=== PATIENT | female | born 1955 | race Hispanic/Latino ===

== ENCOUNTER → 2017-10-05 | Outpatient (CLI) | payer MEDICARE ==
[~2017-10-05] MED LIST: ACET-66 PO; ATOR40TA71 PO; CINA30 PO; EMLA30C TP; FOLI1TAB61 PO; METO-391 PO; NITR0.4T SL; OMEP40CA37 PO; ONDA4TAB4 PO; SEVE800T7 PO
== END | disposition home or self-care (01) ==
LOC: RAH 14:31
PROVIDERS: ATTEND Family Medicine
DX: Z12.31 Encounter for screening mammogram for malignant neoplasm of breast (principal)
CPT/HCPCS: 77067

== ENCOUNTER 2019-02-15 00:24 | Emergency (ER) | payer MEDICARE ==
[~2019-02-15 00:24] MED LIST changes: +OMEP40CA13 PO; -OMEP40CA37 PO
[2019-02-15] MEDS ORDERED: HYDRALAZINE HCL 20 MG/ML VIAL ONE (00:47)
[2019-02-15 00:53] LABS: BASOPHILS % (AUTO) 1.4 % (0.0-5.0); HEMATOCRIT 30.5 % (36-48); LYMPHOCYTES % (AUTO) 31.3 % (21.0-51.0); MEAN CORPUSCULAR HEMOGLOBIN 31.5 pg (27.0-33.0); MEAN CORPUSCULAR HGB CONC 34.4 g/dL (32.0-36.0); MEAN CORPUSCULAR VOLUME 91.5 fL (79-99); MONOCYTES % (AUTO) 9.5 % (3.0-13.0); NEUTROPHILS % (AUTO) 55.8 % (40.0-77.0); PLATELET COUNT (AUTO) 156 K/uL (130-400); RED BLOOD CELL COUNT(AUTO) 3.34 MIL/uL (4.00-5.50); RED CELL DISTRIBUTION WIDTH 16.1 % (11.0-15.5); WHITE BLOOD COUNT (AUTO) 5.3 K/uL (4.8-10.8)
[2019-02-15 01:02] LABS: CREATININE 4.9 mg/dL (0.5-1.5); POTASSIUM 3.7 mmol/L (3.5-5.1)
== END 2019-02-15 02:11 | disposition home or self-care (01) ==
LOC: EDH 00:24
DX: F41.8 Other specified anxiety disorders (principal); R00.2 Palpitations; I12.0 Hypertensive chronic kidney disease with stage 5 chronic kidney disease or end stage renal disease; N18.6 End stage renal disease; E78.5 Hyperlipidemia, unspecified
CPT/HCPCS: 36415; 80048; 84484; 85025; 93005; 96374; 99285; J0360

== ENCOUNTER 2019-10-25 05:31 | Day surgery (SDC) | payer MEDICARE ==
[2019-10-23 10:51] VITALS: BP 163/78
[2019-10-23 11:00] LABS: BASOPHILS % (AUTO) 0.9 % (0.0-5.0); EOSINOPHILS % (AUTO) 1.7 % (0.0-8.0); HEMATOCRIT 38.3 % (36-48); LYMPHOCYTES % (AUTO) 35.7 % (21.0-51.0); MEAN CORPUSCULAR HEMOGLOBIN 29.7 pg (27.0-33.0); MEAN CORPUSCULAR HGB CONC 31.6 g/dL (32.0-36.0); MEAN CORPUSCULAR VOLUME 93.9 fL (79-99); MONOCYTES % (AUTO) 8.3 % (3.0-13.0); NEUTROPHILS % (AUTO) 53.2 % (40.0-77.0); PLATELET COUNT (AUTO) 212 K/uL (130-400); RED BLOOD CELL COUNT(AUTO) 4.08 MIL/uL (4.00-5.50); RED CELL DISTRIBUTION WIDTH 15.9 % (11.0-15.5); WHITE BLOOD COUNT (AUTO) 5.4 K/uL (4.8-10.8)
[2019-10-23 11:17] LABS: POTASSIUM 5.2 mmol/L (3.5-5.1)
[2019-10-23 11:23] LABS: INR 0.92 (0.85-1.15); PARTIAL THROMBOPLASTIN TIME 25.7 SEC (26.3-35.5)
[2019-10-23 11:29] LABS: CREATININE 8.1 mg/dL (0.5-1.5)
[2019-10-23 11:40] LABS: APPEARANCE,URINE Clear (CLEAR); BILIRUBIN,URINE Negative (NEGATIVE); COLOR,URINE Yellow (YELLOW); GLUCOSE, URINE (UA) TRACE mg/dL (NEGATIVE); KETONES,URINE Negative (NEGATIVE); LEUKOCYTE ESTERASE ,URINE Small (NEGATIVE); NITRATE,URINE Negative (NEGATIVE); OCCULT BLOOD,URINE Negative (NEGATIVE); PH,URINE >=9.0 (5.0-8.0); PROTEIN,URINE POS 2+ mg/dL (NEGATIVE); UROBILINOGEN,URINE 0.2 mg/dL (0.2-1.0)
[2019-10-23 11:50] LABS: BACTERIA,URINE Few /HPF (None Seen); RBC,URINE 0-1 /HPF (0-1)
--- NOTE | 2019-10-24 11:32 | NUR ---
RE: ABNORMAL LABS REPORTED ABNORMAL LABS TO [facility]EE[facility] (BUN 43, CREAT 8.1, K 5.2) AND ABNORMAL URINALYSIS WAS REPORTED WELL. NO NEW ORDERS RECEIVED. MAY PROCEED WITH SCHEDULED CATH PROCEDURE.
[~2019-10-25] VITALS: Ht 149.9 cm; Wt 68.0 kg
[2019-10-25] VITALS (21 sets, daily range): BP systolic 113–182; BP diastolic 43–71
[~2019-10-25 05:31] MED LIST changes: -ACET-66 PO; +BUSP5TAB3 PO; -EMLA30C TP; -FOLI1TAB61 PO; -NITR0.4T SL; -ONDA4TAB4 PO; +SODIUM CHLORIDE 0.9% 500ML 500 ML IV SCH
[2019-10-25] MEDS ORDERED: BIVALIRUDIN 250 MG/VIAL IV ONE (07:12)
[2019-10-25] MEDS ORDERED: MIDAZOLAM HCL 1 MG/ML 2ML VIAL ONE (07:12)
[2019-10-25] MEDS ORDERED: LIDOCAINE HCL 2% 20ML ONE (07:12)
[2019-10-25] MEDS ORDERED: FENTANYL CITRATE PF 50 MCG/1 ML 2ML VIAL ONE (07:12)
[2019-10-25] MEDS ORDERED: NITROGLYCERIN 2 MG/VIAL VIAL IV ONE (07:12)
[2019-10-25] MEDS ORDERED: IOHEXOL 350 MG/ML 100ML INFUS..BTL IV ONE (07:12)
[2019-10-25] MEDS ORDERED: IOHEXOL-350 50ML VIAL IV ONE (07:12)
[2019-10-25] MEDS ORDERED: SODIUM CHLORIDE 0.9% 1000ML 1,000 ML IV ONE (07:15)
[2019-10-25] MEDS ORDERED: DEXTROSE 50%-WATER 50 ML DISP.SYRIN IV PRN (08:15)
[2019-10-25] MEDS ORDERED: NITROGLYCERIN 0.4 MG SL TAB SL PRN (08:15)
[2019-10-25] MEDS ORDERED: GLUCAGON 1MG KIT 1 MG ML IM PRN (08:15)
[2019-10-25] MEDS ORDERED: METOPROLOL TARTRATE 1 MG/ML 5ML VIAL IV PRN (08:15)
[2019-10-25] MEDS: HYDRALAZINE HCL 20 MG/ML VIAL IV PRN ×2 (09:50→10:19)
--- NOTE | 2019-10-25 13:05 | NUR ---
PT discharged home, tolerating fluids/solids well, voided prior to discharge, ambulating well. Pt denies any pain, nausea or dizziness. Site to right groin remains soft, non-tender, dressing clean, dry and intact. Pt and daughter instructed in routine and emergency care of cath site. Daughter translated into Italian for pt. Daughter and pt verbalized understanding and report no further questions at this time. Daughter reports that the [facility] cath lab manager report was given to her.
== END 2019-10-25 12:05 | disposition home or self-care (01) ==
LOC: DAH 05:31
PROVIDERS: ATTEND Internal Medicine Cardiovascular Disease
DX: I25.119 Atherosclerotic heart disease of native coronary artery with unspecified angina pectoris (principal); E78.5 Hyperlipidemia, unspecified; I12.0 Hypertensive chronic kidney disease with stage 5 chronic kidney disease or end stage renal disease; N18.6 End stage renal disease; E66.9 Obesity, unspecified; I73.9 Peripheral vascular disease, unspecified; Z99.2 Dependence on renal dialysis; Z68.30 Body mass index [BMI] 30.0-30.9, adult; Z79.899 Other long term (current) drug therapy
CPT/HCPCS: 36415; 71045; 75630; 80048; 81001; 85025; 85610; 85730; 93005; 93458; A4215; A4216; A4221; A4222; A4223 ×3; A4606; A4663; C1894 ×2; J0360; J1644; J3010; J3490 ×2; J7030; Q9965; Q9967 ×2; 36200; J0583; J2250

== ENCOUNTER 2021-04-01 23:47 | Emergency (ER) | payer MEDICARE ==
[~2021-04-01] VITALS: Ht 152.4 cm; Wt 68.0 kg
[~2021-04-01 23:47] MED LIST changes: -OMEP40CA13 PO; +OMEP40CA21 PO; -SODIUM CHLORIDE 0.9% 500ML 500 ML IV SCH
[2021-04-02 01:29] VITALS: BP 160/76
== END 2021-04-02 01:30 | disposition home or self-care (01) ==
LOC: EDH 23:47
DX: I12.0 Hypertensive chronic kidney disease with stage 5 chronic kidney disease or end stage renal disease (principal); N18.6 End stage renal disease; E78.00 Pure hypercholesterolemia, unspecified; Z79.899 Other long term (current) drug therapy; Z99.2 Dependence on renal dialysis
CPT/HCPCS: 93005

== ENCOUNTER → 2022-04-24 | Outpatient (CLI) | payer MEDICARE | END | disposition home or self-care (01) | LOC: SHCH 14:27 | PROVIDERS: ATTEND Internal Medicine Cardiovascular Disease | DX: R06.09 Other forms of dyspnea (principal); R07.9 Chest pain, unspecified | CPT/HCPCS: 93306 ==

== ENCOUNTER 2022-07-22 09:08 | Emergency (ER) | payer MEDICARE ==
[~2022-07-22] VITALS: Ht 157.5 cm; Wt 56.7 kg
[2022-07-22 09:44] LABS: BASOPHILS % (AUTO) 0.4 % (0.0-5.0); EOSINOPHILS % (AUTO) 0.6 % (0.0-8.0); HEMATOCRIT 29.4 % (36-48); LYMPHOCYTES % (AUTO) 12.7 % (21.0-51.0); MEAN CORPUSCULAR HEMOGLOBIN 29.6 pg (27.0-33.0); MEAN CORPUSCULAR HGB CONC 32.3 g/dL (32.0-36.0); MEAN CORPUSCULAR VOLUME 91.6 fL (79-99); MONOCYTES % (AUTO) 5.6 % (3.0-13.0); NEUTROPHILS % (AUTO) 72.7 % (40.0-77.0); NUCLEATED RED BLOOD CELLS 0.4 % (0.0-0.19); PLATELET COUNT (AUTO) 199 K/uL (130-400); RED BLOOD CELL COUNT(AUTO) 3.21 MIL/uL (4.00-5.50); RED CELL DISTRIBUTION WIDTH 14.4 % (11.0-15.5); WHITE BLOOD COUNT (AUTO) 4.6 K/uL (4.8-10.8)
[2022-07-22] MEDS ORDERED: ONDANSETRON 4MG INJ IV ONE (10:00)
[2022-07-22] MEDS ORDERED: MORPHINE 4 MG SYG IVP ONE (10:00)
[2022-07-22 10:01] LABS: POTASSIUM 3.9 mmol/L (3.5-5.1); TOTAL PROTEIN, SERUM 5.8 g/dL (6.0-8.3)
[2022-07-22 10:39] LABS: APPEARANCE,URINE CLOUDY (CLEAR); COLOR,URINE YELLOW (YELLOW)
[2022-07-22 10:40] LABS: GLUCOSE, URINE (UA) NEGATIVE (NEGATIVE); PROTEIN,URINE TRACE mg/dL (NEGATIVE)
[2022-07-22 10:41] LABS: OCCULT BLOOD,URINE TRACE-LYSED (NEGATIVE)
[2022-07-22 10:42] LABS: BILIRUBIN,URINE SMALL mg/dL (NEGATIVE); KETONES,URINE NEGATIVE (NEGATIVE); LEUKOCYTE ESTERASE ,URINE LARGE Leu/uL (NEGATIVE); NITRATE,URINE NEGATIVE (NEGATIVE); UROBILINOGEN,URINE 0.2 mg/dL (0.2-1.0)
[2022-07-22 10:51] LABS: SQUAMOUS EPITHELIAL CELL,UR 30-50 /HPF (0-2)
[2022-07-22 10:52] LABS: BACTERIA,URINE Many /HPF (None Seen)
[2022-07-22] MEDS ORDERED: CEFTRIAXONE 1G VIAL IVPB ONE (12:00)
[2022-07-22] MEDS ORDERED: SULF1TAB42 PO (12:41)
[2022-07-22 14:08] VITALS: BP 114/54
== END 2022-07-22 14:10 | disposition home or self-care (01) ==
LOC: EDH 09:08
DX: N39.0 Urinary tract infection, site not specified (principal); I12.9 Hypertensive chronic kidney disease with stage 1 through stage 4 chronic kidney disease, or unspecified chronic kidney disease; N18.9 Chronic kidney disease, unspecified; R77.8 Other specified abnormalities of plasma proteins; E78.00 Pure hypercholesterolemia, unspecified; Z79.899 Other long term (current) drug therapy
CPT/HCPCS: 99285; 74176; 96374; 96375; 84484 ×2; 80053; 83690; 85025; 87088; 81001; 36415; 93005; J0696; J2405; J2270